=== PATIENT | female | born 1950 | race Caucasian/White ===

== ENCOUNTER 2016-05-21 00:19 | Emergency (ER) | payer OTHER ==
[~2016-05-21] VITALS: Ht 162.6 cm; Wt 82.1 kg
[2016-05-21] MEDS ORDERED: ALBUTEROL FS 2.5 MG/3 ML VIAL.NEB ONE (00:52)
[2016-05-21] MEDS ORDERED: ALBUTEROL FS 2.5 MG/3 ML VIAL.NEB NEB ONE (01:00)
[2016-05-21 02:20] VITALS: BP 151/86
== END 2016-05-21 02:21 | disposition home or self-care (01) ==
LOC: ER 00:22
DX: J06.9 Acute upper respiratory infection, unspecified (principal); J40 Bronchitis, not specified as acute or chronic; J02.9 Acute pharyngitis, unspecified; I10 Essential (primary) hypertension; Z86.73 Personal history of transient ischemic attack (TIA), and cerebral infarction without residual deficits; F17.210 Nicotine dependence, cigarettes, uncomplicated
CPT/HCPCS: 71010-TC; A4606; Z7610

== ENCOUNTER 2020-01-24 03:24 | Emergency (ER) | payer OTHER ==
[~2020-01-24] VITALS: Ht 165.1 cm; Wt 78.5 kg
--- NOTE | 2020-01-24 04:08 | NUR ---
BLOOD IS DRAWN AND SENT TO THE LAB.
--- NOTE | 2020-01-24 04:26 | NUR ---
PATIENT CAME TO ER BED 11 C/O SOB SINCE EARLIER TONIGHT WHEN SHE WAS ABOUT TO GO TO SLEEP. PATIENT IS AAOX4. NO SOB .BREATHING EVENLY AND UNLABORED ON ROOM AIR.CONNECTED TO THE MONITOR. PATIENT IS AMBULATORY WITH A STEADY GAIT AND IS ABLE TO SPEAK IN MANY FULL SENTENCES.
--- NOTE | 2020-01-24 04:57 | NUR ---
CALLED LAB FOR BLOOD WELL PULLER IN STAT LAB
[2020-01-24 05:15] LABS: BASOPHILS # (AUTO) 0.1 /CMM (0.0-0.2); BASOPHILS % (AUTO) 0.7 % (0.0-2.0); CARBON DIOXIDE 25 mmol/L (21-32); CHLORIDE 103 mmol/L (98-107); CREATININE 0.8 mg/dL (0.6-1.3); EOSINOPHILS % (AUTO) 2.5 % (0.0-6.0); GLUCOSE 116 mg/dL (74-106); HEMATOCRIT 44 % (33-45); LYMPHOCYTES # (AUTO) 2.3 /CMM (0.8-4.8); LYMPHOCYTES % (AUTO) 30.9 % (20.0-44.0); MEAN CORPUSCULAR HGB CONC 34 g/dl (31.0-36.0); MEAN CORPUSCULAR VOLUME 96 fL (82-100); MONOCYTES # (AUTO) 0.4 /CMM (0.1-1.30); MONOCYTES % (AUTO) 5.9 % (2.0-12.0); NEUTROPHILS # (AUTO) 4.4 /CMM (1.8-8.9); PLATELET COUNT (AUTO) 267 /CMM (150-450); RED BLOOD CELL COUNT(AUTO) 4.57 MIL/uL (4.0-5.2); SODIUM SERUM 140 mmol/L (136-145); UREA NITROGEN, BLOOD 11 mg/dL (7-18); WHITE BLOOD COUNT (AUTO) 7.3 K/uL (4.3-11.0)
--- NOTE | 2020-01-24 05:31 | NUR ---
PATIENT REFUSED THE CORONAVIRUS SWAB SAMPLE. "I DON'T BELIEVE IN IT I DON'T WANT TO BE A PART A GOVERNMENT SYSTEM. MY KIDS TOLD ME, MOM THEY ARE GOING TO TRY TO SWAB YOUR NOSE...." NOTIFIED.
--- NOTE | 2020-01-24 05:40 | NUR ---
TURNED IN ADMISSION FORMS TO ADMITTING DEPARTMENT
--- NOTE | 2020-01-24 06:23 | NUR ---
CORONAVIRUS SWAB COLLECTED SENT TO LAB FOR TESTING.
--- NOTE | 2020-01-24 06:40 | NUR ---
SPOKE WITH MARY MODEL MAKER FIBERGLASS REGARDING PATIENT'S STATUS Addendum: 01/24/20 at 0741 by JESSE MARY MOLINA CONTACT INFO: [phone]
--- NOTE | 2020-01-24 07:21 | NUR ---
REC'D NEG COVID RESULTS
--- NOTE | 2020-01-24 07:38 | NUR ---
PER CARRIE MOLNIA MARY, IF COVID TEST IS NEGATIVE. OKAY TO DISCHARGE, THEY WILL INSTRUCT PT TO FOLLOW UP WITH GUEST SERVICE MANAGER.
--- NOTE | 2020-01-24 08:02 | NUR ---
Assumed care patient awake alert noted walk in and out to her room ,[address] Cn spoke to the patient regarding plan of care .
[2020-01-24 08:22] VITALS: BP 153/83
--- NOTE | 2020-01-24 09:37 | NUR ---
[facility] [phone].
--- NOTE | 2020-01-24 10:22 | NUR ---
SPOKE WITH [facility] ARNOLD. PATIENT ACCEPTED TO COUNT INCLUDES THE [facility], UNDER THE CARE OF DR. TUBBS. CM TO CALL US BACK FOR ROOM AND TRANSFER INFORMATION.
--- NOTE | 2020-01-24 10:23 | NUR ---
PATIENT MADE AWARE RE: PLAN OF CARE.
--- NOTE | 2020-01-24 11:49 | NUR ---
Patient awake alert non distress vitals taken and filed she is her room 11 showing her family pics she is aware awaiting for a bed
--- NOTE | 2020-01-24 11:58 | NUR ---
TRANSFER INFORMATION: [facility] ROOM:[address] # FOR REPORT: [phone] NURSE: JULIUS ACCEPTING: DR OWENS TRANSPO: IGNACIA ANDERSON [id number]
--- NOTE | 2020-01-24 12:26 | NUR ---
Called report given to Pamela SEGOVIA [address] [facility] .
--- NOTE | 2020-01-24 12:27 | NUR ---
Patiet awake alert texting her family regarding trasfer .
--- NOTE | 2020-01-24 12:45 | NUR ---
Transfer vai [facility] 40 .
== END 2020-01-24 12:48 | disposition short-term general hospital (02) ==
LOC: ER 03:35
DX: R06.00 Dyspnea, unspecified (principal); I45.10 Unspecified right bundle-branch block; F17.210 Nicotine dependence, cigarettes, uncomplicated; Z86.73 Personal history of transient ischemic attack (TIA), and cerebral infarction without residual deficits; I10 Essential (primary) hypertension; Z20.828 Contact with and (suspected) exposure to other viral communicable diseases; Z91.14 Patient's other noncompliance with medication regimen
CPT/HCPCS: 36415; 71045-TC; 80048-TC; 84484-TC; 85025-TC; C9803-CS